=== PATIENT | female | born 1990 | race Caucasian/White ===

== ENCOUNTER 2021-04-05 11:43 | Emergency (ER) | payer OTHER ==
[2021-04-05 11:47] VITALS: BP 117/79; PULSE 95; TEMP 97; BMI 24.5
[2021-04-05] MEDS ORDERED: KETOROLAC TROMETHAMINE 30 MG/1 ML VIAL IM ONE (12:05)
[2021-04-05] MEDS ORDERED: METHOCARBAMOL 500 MG TABLET PO ONE (12:05)
[2021-04-05] MEDS ORDERED: KETOROLAC TROMETHAMINE 30 MG/1 ML VIAL ONE (12:15)
[2021-04-05] MEDS ORDERED: METHOCARBAMOL 500 MG TABLET ONE ×2 (12:16→12:19)
== END 2021-04-05 13:05 | disposition home or self-care (01) ==
LOC: JERFT 11:43
PROC: 3E0233Z Introduction of Anti-inflammatory into Muscle, Percutaneous Approach (ICD-10-PCS; principal; 2021-04-05)
DX: M62.838 Other muscle spasm (principal); M54.2 Cervicalgia
CPT/HCPCS: 99284-25